=== PATIENT | male | born 1960 | race Two or more races ===

== ENCOUNTER → 2017-09-23 10:03 | Outpatient (CLI) | payer OTHER ==
--- NOTE | ~2017-09-23 | EC ---
PATIENT:CA BROWN DATE OF SERVICE: 09/23/17 SEX: M MEDICAL RECORD: [id number] DATE OF : 62 LOCATION:[facility] AGE OF PATIENT: 57 ADMISSION DATE: 09/23/17 REFERRING PHYSICIAN: INTERPRETING PHYSICIAN: JOSE HOOKER MD ECHOCARDIOGRAM REPORT ECHO CHARGES 4 ECHO COMPLETE CLINICAL DIAGNOSIS: DYSPNEA/DIZZINESS/CP ECHOCARDIOGRAPHIC MEASUREMENTS (adult normal given) AC root (d.<3.7cm) 3.2 cm LV Septum d (<1.2 cm> 1.1 cm Valve Excursion 2.0 cm LV Septum (systole) 1.8 cm Left Atria (s.<4.0cm> 4.0 cm LVPW d(<1.2cm) 1.2 cm RV (d.<2.3cm) 3.0 cm LVPW (sytole) 1.8 cm LV diastole(<5.6CM) 3.9 cm MV E-F(>70mm/sec) cm LV systole 2.6 cm LVOT Diameter 2.0 cm MV exc.(>10mm) cm Est.ejection fraction (50-75%) % Pericardial Effusion N DOPPLER: LVIT cm/sec A 47.0 cm/sec E 63.0 cm/sec LA cm/sec RVSP 35.0 mmHg LVOT 78.0 cm/sec AOP1/2T m/s Asc. Ao 124 cm/sec RVOT 52.0 cm/sec RA cm/sec PA 107 cm/sec AV Gradient Peak 6.2 mmHg AV Mean 2.7 mmHg AV Area 2.2 cm MV Gradient Peak 2.5 mmHg MV Mean 1.0 mmHg MV Area cm COMMENTS: Stone Finisher: Srini LACKEYOE Parachute Mender: Nikki Hooker TAPE# PACS DATE OF SERVICE: 09/23/2017 PROCEDURE: Transthoracic echocardiogram. FINDINGS: 1. This is a good quality echocardiogram. Appears to be mild left ventricular hypertrophy with inflow characteristics that are otherwise normal. Normal ejection fraction. No evidence of wall motion abnormalities. 2. The mitral valve appears to be normal with note of trace mitral regurgitation. ECHOCARDIOGRAM REPORT [id number] CA BROWN 3. The aortic valve is normal. 4. The left atrium appears to be upper limits of normal to mildly dilated. 5. Tricuspid valve has trace tricuspid regurgitation. 6. The right ventricle is normal size and normal function. 7. The right atrium has normal size and normal function. 8. The pericardium is normal. 9. The interatrial septum is not well visualized, but grossly appears to be normal. CONCLUSION: This appears to be a normal echocardiogram with evidence of mild left ventricular hypertrophy. TRANSINT:[id number] Voice Confirmation ID: [id number] DOCUMENT ID: [id number] JOSE HOOKER MD at 1001 CC: [id number] DICTATION DATE: 09/28/17 1132 INTERNAL MEDICINE HOSPITALIST: 09/28/17 1231 DEP CLI 09/23/17 [facility] [address] [place] [address]
== END | disposition home or self-care (01) ==
LOC: D.ECHO 10:03
DX: R06.00 Dyspnea, unspecified (principal); R42 Dizziness and giddiness; R07.9 Chest pain, unspecified

== ENCOUNTER → 2017-10-04 16:17 | Outpatient (CLI) | payer OTHER ==
[2017-10-04 16:42] LABS: BASOPHILS 0.5 % (0-2); EOSINOPHILS 11.6 % (0-7); HEMATOCRIT 46.9 % (42.0-54.0); HEMOGLOBIN 15.5 g/dL (13.5-17.5); IMMATURE GRANULOCYTES 0.4 % (0-5); LYMPHOCYTES 21.3 % (15-50); MCH 29.6 pg (26.0-34.0); MCV 89.7 fL (80.0-100.0); MONOCYTES 7.8 % (2-11); NEUTROPHILS 58.4 % (40-80); PLATELET COUNT 235 10x3/uL (130-400); RBC 5.23 10x6/uL (4.20-6.10); RDW 13.4 % (11.5-14.5); WBC 7.3 10x3/uL (4.8-10.8)
[2017-10-04 17:27] LABS: ALBUMIN 3.8 g/dL (3.4-5.0); ALKALINE PHOSPHATASE 96 U/L (46-116); ALT (SGPT) 33 U/L (10-68); BILIRUBIN - DIRECT 0.05 mg/dL (0.00-0.30); BILIRUBIN - TOTAL 0.25 mg/dL (0.2-1.3); CALC OSMOLALITY 280 mosm/kg (275-300); CARBON DIOXIDE 25.2 mmol/L (21.0-32.0); CHLORIDE - SERUM 104 mmol/L (98-107); CHOL - HDL RATIO 6.2 ratio (2.3-4.9); CHOLESTEROL, TOTAL 266 mg/dL (0-200); CKMB 1.2 U/L (0.0-3.6); CREATININE - SERUM 0.9 mg/dL (0.6-1.3); GLUCOSE 100 mg/dL (74-106); HDL CHOLESTEROL 43 mg/dL (32-96); LDL CHOLESTEROL 179 mg/dL (0-100); LDL-HDL RATIO 4.2 ratio (1.5-3.5); POTASSIUM - SERUM 4.4 mmol/L (3.5-5.1); PROTEIN - SERUM 7.1 g/dL (6.4-8.2); SODIUM 139 mmol/L (136-145); TRIGLYCERIDE 220 mg/dL (30-200); UREA NITROGEN 21 mg/dL (7-18); eGFR NON AFRICAN AMERICAN > 90 mL/min (90-120)
== END | disposition home or self-care (01) ==
LOC: D.LABREF 16:17
PROVIDERS: Internal Medicine Cardiovascular Disease
DX: R07.9 Chest pain, unspecified (principal); R42 Dizziness and giddiness

== ENCOUNTER → 2017-10-21 13:02 | Outpatient (CLI) | payer OTHER | END | disposition home or self-care (01) | LOC: D.US 13:02 | DX: R07.9 Chest pain, unspecified (principal); I73.9 Peripheral vascular disease, unspecified; R06.00 Dyspnea, unspecified; G45.9 Transient cerebral ischemic attack, unspecified; R42 Dizziness and giddiness ==

== ENCOUNTER → 2017-11-08 16:20 | Outpatient (CLI) | payer OTHER ==
[2017-11-08 16:51] LABS: CHOL - HDL RATIO 4.8 ratio (2.3-4.9); LDL-HDL RATIO 2.8 ratio (1.5-3.5)
== END | disposition home or self-care (01) ==
LOC: D.LABREF 16:20
PROVIDERS: Internal Medicine Cardiovascular Disease
DX: E78.5 Hyperlipidemia, unspecified (principal)